=== PATIENT | male | born 1995 | race Two or more races ===

== ENCOUNTER 2018-12-19 03:35 | Emergency (ER) | payer SELFPAY ==
[~2018-12-19] VITALS: Ht 180.3 cm; Wt 74.8 kg
[2018-12-19] MEDS ORDERED: TDAP [DIPH/PERTUSSIS/TET] 0.5 ML VIAL IM ONE ×2 (04:00→04:02)
--- NOTE | 2018-12-19 04:12 | NUR ---
Patient discharged to home in stable condition. Written and verbal after care instructions given. Patient verbalizes understanding of instruction.
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
[2018-12-19 04:13] VITALS: BP 122/82
== END 2018-12-19 04:14 | disposition home or self-care (01) ==
LOC: ER 03:37
DX: S00.12XA Contusion of left eyelid and periocular area, initial encounter (principal); F41.9 Anxiety disorder, unspecified; F31.9 Bipolar disorder, unspecified; Y04.0XXA Assault by unarmed brawl or fight, initial encounter; Y93.89 Activity, other specified; Y92.89 Other specified places as the place of occurrence of the external cause; Y99.8 Other external cause status
CPT/HCPCS: 90715